=== PATIENT | male | born 1970 | race African-American/Black ===

== ENCOUNTER 2022-08-03 21:10 | Emergency (ER) | payer BC ==
[2022-08-03 21:15] VITALS: BP 131/76; PULSE 67; RESP 18; TEMP 97; BMI 27.1
[2022-08-03] MEDS ORDERED: LIDOCAINE HCL 1%, 10 MG/ML (50 mL VIAL) SQ ONE (22:17)
[2022-08-03] MEDS ORDERED: IBUPROFEN 600 MG TABLET (FP) PO ONE ×3 (22:19→22:28)
[2022-08-03] MEDS ORDERED: ACETAMINOPHEN 325 MG TABLET (FP) PO ONE (22:19)
[2022-08-03] MEDS ORDERED: ACETAMINOPHEN 325 MG TABLET (FP) ONE ×2 (22:20→22:28)
[2022-08-03] MEDS ORDERED: LIDOCAINE HCL 1%, 10 MG/ML (20ML VIAL) ONE (22:20)
== END 2022-08-03 23:28 | disposition home or self-care (01) ==
LOC: JER 21:10 → JERFT 21:10 → JER 23:28
DX: S63.295A Dislocation of distal interphalangeal joint of left ring finger, initial encounter (principal); W01.0XXA Fall on same level from slipping, tripping and stumbling without subsequent striking against object, initial encounter
CPT/HCPCS: 73140-TC-LT-FY; 99284-25

== ENCOUNTER 2023-08-05 18:36 | Emergency (ER) | payer BC ==
[2023-08-05 18:48] VITALS: BP 134/88; PULSE 76; RESP 18; TEMP 98.5; BMI 27.1
[2023-08-05] MEDS ORDERED: ASPIRIN 325 MG TABLET PO ONE (19:50)
[2023-08-05] MEDS ORDERED: ASPIRIN 81 MG CHEWABLE TABLETS ONE (19:58)
[2023-08-05] MEDS ORDERED: ASPIRIN 81 MG CHEWABLE TABLETS PO ONE (19:59)
[2023-08-05 20:54] LABS: BASO % 0.6 % (0-2.0); EOS % 0.3 % (0-4.5); HEMATOCRIT 43.5 % (35.4-49); HEMOGLOBIN 14.9 GM/dL (11.7-16.9); LYMPH % 38.7 % (8-40); MCH 29.4 pg (25.7-33.7); MCHC 34.2 g/dl (32.0-35.9); MEAN CELL VOLUME 85.9 fl (80-96); MEAN PLT VOLUME 7.2 fl (7.5-11.1); MONO % 9.6 % (3.8-10.2); NEUT % 50.8 % (42.8-82.8); PLATELET COUNT 247 10^3/uL (134-434); RBC 5.07 M/mm3 (4.00-5.60); RDW 13.8 % (11.9-15.9); WHITE BLOOD COUNT 6.1 K/mm3 (4.0-10.0)
[2023-08-05 21:26] LABS: POTASSIUM 3.9 mmol/L (3.5-5.1)
[2023-08-05 21:28] LABS: ALBUMIN 3.5 g/dl (3.4-5.0); BLOOD UREA NITROGEN 14.1 mg/dL (7-18); CALCIUM 8.9 mg/dL (8.5-10.1)
[2023-08-05 21:32] LABS: CREATININE 1.4 mg/dL (0.55-1.3)
[2023-08-05 21:33] LABS: BILIRUBIN,TOTAL 0.5 mg/dL (0.2-1)
[2023-08-05 21:36] LABS: N-TERMINAL BNP 23.8 pg/ml (5-125)
== END 2023-08-06 01:04 | disposition home or self-care (01) ==
LOC: JER 18:36
DX: R06.02 Shortness of breath (principal); R07.89 Other chest pain
CPT/HCPCS: 36415; 71045-TC-FY; 71275-TC; 80053; 83880; 84484; 85025; 93005; 93010; 99285-25; Q9967

== ENCOUNTER 2024-05-07 15:12 | Emergency (ER) | payer BC ==
[2024-05-07 15:22] VITALS: BP 146/90; PULSE 62; RESP 18; TEMP 98.5; BMI 27.1
[2024-05-07] MEDS ORDERED: IBUPROFEN 400 MG TABLET (FP) PO ONE (16:09)
[2024-05-07] MEDS: IBUPROFEN 400 MG TABLET (FP) PO ONE (16:13)
== END 2024-05-07 19:20 | disposition home or self-care (01) ==
LOC: JERFT 15:12
DX: S92.355A Nondisplaced fracture of fifth metatarsal bone, left foot, initial encounter for closed fracture (principal); V23.41XA Electric (assisted) bicycle driver injured in collision with car, pick-up truck or van in traffic accident, initial encounter
CPT/HCPCS: 73610-TC-LT-FY; 73630-TC-LT; 99283-25